=== PATIENT | female | born 1995 | race Caucasian/White ===

== ENCOUNTER 2025-09-06 20:26 | Outpatient (CLI) | payer BC, SELFPAY | END 2025-09-06 20:27 | disposition home or self-care (01) | LOC: SLEEP 20:51 | PROVIDERS: Visit Provider Internal Medicine | DX: G47.9 Sleep disorder, unspecified (principal); G47.33 Obstructive sleep apnea (adult) (pediatric) | CPT/HCPCS: 95810; A9270 ==